=== PATIENT | male | born 1980 | race Caucasian/White ===

== ENCOUNTER 2016-12-06 15:47 | Emergency (ER) | payer OTHER ==
[~2016-12-06] VITALS: Ht 172.7 cm; Wt 72.6 kg
[2016-12-06] MEDS ORDERED: PENICILLIN VK500 M1 PO (15:58)
[2016-12-06] MEDS ORDERED: MOBIC15 MG PO (15:58)
== END 2016-12-06 16:00 | disposition home or self-care (01) ==
LOC: ER 15:47
DX: K02.9 Dental caries, unspecified (principal); F17.210 Nicotine dependence, cigarettes, uncomplicated